=== PATIENT | female | born 1960 | race Caucasian/White ===

== ENCOUNTER 2017-02-21 09:21 | Emergency (ER) | payer BC, OTHER ==
[2017-02-21 09:28] VITALS: TEMP 98.3
[2017-02-21] MEDS ORDERED: Lidocaine 1% w Epi 1:100,000 Inj INJ STA (09:43)
--- NOTE | 2017-02-21 09:43 | C.PDOC ---
History Of Present Illness 56 y/o female presents to the ED s/p fall [employer]. Pt states she missed a step and fell backwards striking her head on the edge of the toilet. Denies LOC, nausea , vomiting, SOB, chest pain, dizziness, weakness, or numbness. Pt also complaints of neck pain, but denies direct trauma to the neck. No other associated injury. SP SLIP AND FALL CO HEAD INJURY W BLEEDING ONSET [employer] WORK[employer] WORKER. PS MISSED STEP FELL BACKWARDS AND STRUCK EDGE OF TOILET. NO LOC, NV. ALSO CO POST NECK PAIN BUT DENIES TRAUMA TO NECK, OTHER ASSOC INJ EXAM MILD DIST NONTOXIC HEENT +MID POST SCALP HEMATOMA, UNABLE TO LOCALIZED BLEEDING SITE DUE TO CLOT AND HAIR. NECK NO CSPINE TEND AROM WO DIFF NEURO INTACT REMAINDER NEG Time Seen by Provider: 02/21/17 09:29 Chief Complaint (Nursing): Abnormal Skin Integrity History Per: Patient History/Exam Limitations: no limitations Onset/Duration Of Symptoms: Mins Patient States: Fell Striking Head Severity: Moderate Loss Of Consciousness: No Recent travel outside of the [place]: No Past Medical History Reviewed: Historical Data, Nursing Documentation, Vital Signs Vital Signs: Last Vital Signs Temp 98.3 F 02/21/17 09:25 Pulse 75 02/21/17 11:00 Resp 18 02/21/17 11:00 BP 151/92 H 02/21/17 11:00 Pulse Ox 100 02/21/17 11:00 - Medical History PMH: Arthritis, HTN, Hypercholesterolemia, Hypothyroidism Family History: States: Unknown Family Hx - Social History Hx Alcohol Use: No Hx Substance Use: No - Immunization History Hx Tetanus Toxoid Vaccination: No Hx Influenza Vaccination: Yes Hx Pneumococcal Vaccination: Yes Review Of Systems Except As Marked, All Systems Reviewed And Found Negative. Cardiovascular: Negative for: Chest Pain Respiratory: Negative for: Shortness of Breath Gastrointestinal: Negative for: Nausea, Vomiting Musculoskeletal: Positive for: Neck Pain. Negative for: Back Pain Neurological: Negative for: Weakness, Numbness, Dizziness Physical Exam - Physical Exam Appears: Non-toxic, In Acute Distress (mild) Skin: Warm, Dry, No Rash Head: Normacephalic, Other (mid posterior scalp hematoma, unable to localize bleeding site due to clot and hair) Eye(s): bilateral: PERRL, EOMI Nose: Normal, No Epistaxis Neck: Normal, Normal ROM, No Midline Cervical Tenderness, No Paracervical Tenderness, Supple Chest: Symmetrical, No Tenderness Cardiovascular: Rhythm Regular, No Murmur Respiratory: Normal Breath Sounds, No Rales, No Rhonchi, No Wheezing Gastrointestinal/Abdominal: Normal Exam, Soft, No Tenderness Back: Normal Inspection, No Vertebral Tenderness Extremity: Normal ROM Extremity: Bilateral: Atraumatic Neurological/Psych: Oriented x3, Normal Speech, Normal Cognition, Normal Cranial Nerves, Normal Motor, Normal Sensation ED Course And Treatment O2 Sat by Pulse Oximetry: 100 (room air) Pulse Ox Interpretation: Normal - CT Scan/US CT head Other Rad Studies (CT/US): Read By Radiologist, Radiology Report Reviewed CT/US Interpretation: PROCEDURE: CT HEAD WITHOUT CONTRAST. HISTORY: TRAUMA. COMPARISON: None available. TECHNIQUE: Axial computed tomography images were obtained through the head/brain without intravenous contrast. Radiation dose: Total exam DLP = 815 mGy-cm. This CT exam was performed using one or more of the following dose reduction techniques: Automated exposure control, adjustment of the mA and/or kV according to patient size, and/or use of iterative reconstruction technique. FINDINGS: HEMORRHAGE: No intracranial hemorrhage. BRAIN: No mass effect or edema. No atrophy or chronic microvascular ischemic changes. VENTRICLES: Unremarkable. No hydrocephalus. CALVARIUM: Unremarkable. PARANASAL SINUSES: Unremarkable as visualized. No significant inflammatory changes. MASTOID AIR CELLS: Unremarkable as visualized. No inflammatory changes. OTHER FINDINGS: Right parietal soft tissue swelling. IMPRESSION: No acute intracranial abnormality. Right parietal soft tissue swelling. If focal neurologic deficit persists, consider MRI. CT c-spine Other Rad Studies (CT/US): Read By Radiologist, Radiology Report Reviewed CT/US Interpretation: CT cervical spine. History: Trauma. Comparison: None available. Technique: Multiple contiguous axial images were performed through the cervical spine without the use of intravenous contrast. Subsequently, sagittal and coronal reformatted images were obtained. This CT exam was performed using one or more of the following dose reduction techniques: Automated exposure control, adjustment of the mA and/or kV according to patient size, and/or use of iterative reconstruction technique. Findings: Reversal of the normal cervical lordosis. Bony ankylosis and fusion of the C2 and C3 vertebral bodies. Prominent posterior disc osteophyte complexes at the C5-6 and C6-7 vertebral body levels. Suggestion of a sclerotic focus and/or bone island at the tip of the dens. Anterior osteophyte formation at the C5-6 level. Multilevel uncovertebral joint and facet hypertrophy. No evidence for acute displaced fracture or dislocation. Biapical pleural thickening at the visualized lung apices. Impression: Prominent degenerative changes. If pain persists, consider MRI. Reevaluation Time: 10:52 Reassessment Condition: Improved (NEURO INTACT FEELS BETTER. CT NO ACUTE FINDINGS) Laceration - Laceration Repair No standard instances Wound Length (In cm): 5 Description Of Wound: Clean, Irregular, Contused Tissue Wound Cleansed With: Betadine, Sterile Saline Anesthesia: Lidocaine 2%, With Epi Wound Examination: Irrigated With Saline Wound Closure: [place] (8) Medical Decision Making Medical Decision Making: Plan: * CT cervical spine and head * tylenol * laceration repair Disposition Counseled Patient/Family Regarding: Studies Performed, Diagnosis, Need For Followup - Disposition Referrals: [facility] [Provider Group] Disposition: HOME/ ROUTINE Disposition Time: 10:53 Condition: IMPROVED Additional Instructions: RETURN FOR STAPLE REMOVAL 7-10 DAYS TYLENOL NEEDED FOR PAIN. ICE TO AFFECTED AREA. Instructions: Head Injury (ED), Staple Care (ED) Forms: Work Excuse - Clinical Impression Clinical Impression: Scalp laceration, Minor head injury - Scribe Statement The provider has reviewed the documentation as recorded by the Pj Johnson Provider Attestation: All medical record entries made by the Pj were at my direction and personally dictated by me. I have reviewed the chart and agree that the record accurately reflects my personal performance of the history, physical exam, medical decision making, and the department course for this patient. I have also personally directed, reviewed, and agree with the discharge instructions and disposition.
[2017-02-21] MEDS ORDERED: Lidocaine 2% w Epi 1:100,000 Inj IJ ONE (09:56)
[2017-02-21 10:09] VITALS: RESP 18
[2017-02-21 10:29] VITALS: O2SAT 100
--- NOTE | 2017-02-21 10:35 | CT ---
PROCEDURE: CT HEAD WITHOUT CONTRAST. HISTORY: TRAUMA COMPARISON: None available. TECHNIQUE: Axial computed tomography images were obtained through the head/brain without intravenous contrast. Radiation dose: Total exam DLP = 815 mGy-cm. This CT exam was performed using one or more of the following dose reduction techniques: Automated exposure control, adjustment of the mA and/or kV according to patient size, and/or use of iterative reconstruction technique. FINDINGS: HEMORRHAGE: No intracranial hemorrhage. BRAIN: No mass effect or edema. No atrophy or chronic microvascular ischemic changes. VENTRICLES: Unremarkable. No hydrocephalus. CALVARIUM: Unremarkable. PARANASAL SINUSES: Unremarkable as visualized. No significant inflammatory changes. MASTOID AIR CELLS: Unremarkable as visualized. No inflammatory changes. OTHER FINDINGS: Right parietal soft tissue swelling. IMPRESSION: No acute intracranial abnormality. Right parietal soft tissue swelling. If focal neurologic deficit persists, consider MRI.
[2017-02-21] MEDS ORDERED: Bacitracin 500 Units/gm Oint Foilpak UD ONE (10:40)
--- NOTE | 2017-02-21 10:44 | CT ---
CT cervical spine History: Trauma. Comparison: None available. Technique: Multiple contiguous axial images were performed through the cervical spine without the use of intravenous contrast. Subsequently, sagittal and coronal reformatted images were obtained. This CT exam was performed using one or more of the following dose reduction techniques: Automated exposure control, adjustment of the mA and/or kV according to patient size, and/or use of iterative reconstruction technique. Findings: Reversal of the normal cervical lordosis. Bony ankylosis and fusion of the C2 and C3 vertebral bodies. Prominent posterior disc osteophyte complexes at the C5-6 and C6-7 vertebral body levels. Suggestion of a sclerotic focus and/or bone island at the tip of the dens. Anterior osteophyte formation at the C5-6 level. Multilevel uncovertebral joint and facet hypertrophy. No evidence for acute displaced fracture or dislocation. Biapical pleural thickening at the visualized lung apices. Impression: Prominent degenerative changes. If pain persists, consider MRI.
[2017-02-21] MEDS ORDERED: Tetanus/Diphtheria Toxoids 0.5 ml Syringe IM ONE ×2 (11:00→11:04)
[2017-02-21 11:01] VITALS: BP 151/92; PULSE 75
== END 2017-02-21 11:05 | disposition home or self-care (01) ==
LOC: C.ER 09:21
DX: S01.01XA Laceration without foreign body of scalp, initial encounter (principal); W01.190A Fall on same level from slipping, tripping and stumbling with subsequent striking against furniture, initial encounter; Y92.002 Bathroom of unspecified non-institutional (private) residence as the place of occurrence of the external cause